=== PATIENT | female | born 1970 | race Caucasian/White ===

== ENCOUNTER 2018-03-23 12:36 | Day surgery (SDC) | payer OTHER ==
[2018-03-23] MEDS ORDERED: LIDOCAINE 2% (SDV) 5 ML INJ (14:30)
[2018-03-23] MEDS ORDERED: PROPOFOL 40 ML (14:30)
== END 2018-03-23 17:15 | disposition home or self-care (01) ==
LOC: GIL 12:36
DX: R13.10 Dysphagia, unspecified (principal)
CPT/HCPCS: 43239; 84703; 88305

== ENCOUNTER 2018-09-04 09:22 | Day surgery (SDC) | payer OTHER ==
[2018-09-04] MEDS ORDERED: CLINDAMYCIN 900 MG/D5W (PMX) 50 ML IVPB (10:00)
[2018-09-04] MEDS ORDERED: CLINDAMYCIN 900 MG INJ IVPB (10:00)
[2018-09-04] MEDS ORDERED: MIDAZOLAM 1 MG/ML 2 ML INJ (13:14)
[2018-09-04] MEDS ORDERED: FENTAnyl 50 MCG/ML VIAL (13:14)
[2018-09-04] MEDS: BUPIVACAINE 0.5%/EPI (SDV) 30 ML INJ INJ (13:20)
[2018-09-04] MEDS ORDERED: BUPIVACAINE 0.5%/EPI (SDV) 30 ML INJ (13:49)
[2018-09-04] MEDS ORDERED: CEFAZOLIN 1 GM INJ (13:58)
[2018-09-04] MEDS ORDERED: LIDOCAINE 2% (SDV) 5 ML INJ (13:58)
[2018-09-04] MEDS ORDERED: PROPOFOL 20 ML (13:58)
[2018-09-04] MEDS ORDERED: ONDANSETRON 4 MG INJ (14:00)
[2018-09-04] MEDS: ONDANSETRON 4 MG INJ IV (14:30)
[2018-09-04] MEDS ORDERED: HYDROmorphONE 1 MG/5 ML IV SYRINGE IV ×2 (14:30)
[2018-09-04] MEDS: MEPERIDINE 25 MG INJ IV (14:30)
[2018-09-04] MEDS ORDERED: FENTAnyl 50 MCG/ML VIAL IV (14:30)
[2018-09-04] MEDS ORDERED: DIPHENHYDRAMINE 50 MG INJ IV (14:30)
== END 2018-09-04 15:45 | disposition home or self-care (01) ==
LOC: SDS 09:22
DX: A63.0 Anogenital (venereal) warts (principal)
CPT/HCPCS: 56515; 93005